=== PATIENT | male | born 1955 | race African-American/Black ===

== ENCOUNTER 2021-12-02 19:28 | Emergency (ER) | payer MEDICARE, OTHER ==
[~2021-12-02] VITALS: Ht 185.4 cm; Wt 108.9 kg
[~2021-12-02 19:28] MED LIST: Cialis5 MG; HYDCHL25; LOSA50
[2021-12-02] MEDS ORDERED: LIPITOR80 MG PO (19:40)
[2021-12-02] MEDS ORDERED: ELIQUIS5 M3 PO (19:40)
[2021-12-02] MEDS ORDERED: LOSA50 PO (19:42)
[2021-12-02] MEDS ORDERED: METO25 PO (19:42)
[2021-12-02] MEDS ORDERED: NITROGLYCERIN0.4 M3 SL (19:42)
[2021-12-02] MEDS ORDERED: AMLODIPINE BESY10 MG PO (19:43)
[2021-12-02] MEDS ORDERED: CVS SPECTRAVIT1 EA12 PO (19:43)
[2021-12-02 20:41] LABS: Alanine Aminotransfer (ALT/SGP 29 U/L (12-78); Alk Phos 97 U/L (50-136); Anion Gap 6 mmol/L (6-16); Aspartate Aminotrans (AST/SGOT 26 U/L (12-37); Bilirubin, Total 1.3 mg/dL (0.1-1.0); Blood Urea Nitrogen 11 mg/dL (8-24); Bun/Creatinine Ratio 10.6 (12.0-20.0); CO2, Blood 27 mmol/L (21-32); Calcium, Blood 9.2 mg/dL (8.5-10.1); Chloride, Blood 108 mmol/L (98-108); Creatinine, Blood 1.04 mg/dL (0.60-1.20); Globulin, Blood 4.2 g/dL (2.2-4.0); Glomerular Filtration Rate >60 (60-); Glucose, Blood 109 mg/dL (70-99); Potassium, Blood 3.6 mmol/L (3.5-5.5); Sodium, Blood 141 mmol/L (136-145); Total Protein, Blood 8.2 g/dL (6.4-8.2)
[2021-12-02 20:47] LABS: BASOPHILS ABSOLUTE AUTO 0.05 K/mm3 (0.00-0.23); BASOPHILS PERCENT AUTO 1 % (0-2); EOSINOPHILS ABSOLUTE AUTO 0.54 K/mm3 (0.00-0.68); EOSINOPHILS PERCENT AUTO 10 % (0-6); Hemoglobin 16.2 g/dL (13.5-17.5); IMMATURE GRAN ABSOLUTE AUTO 0.03 K/mm3 (0.00-0.10); IMMATURE GRAN PERCENT AUTO 1 % (0-1); LYMPHOCYTES ABSOLUTE AUTO 2.13 K/mm3 (0.84-5.20); LYMPHOCYTES PERCENT AUTO 39 % (21-46); MONOCYTES ABSOLUTE AUTO 0.39 K/mm3 (0.16-1.47); MONOCYTES PERCENT AUTO 7 % (4-13); Mean Corpuscular HGB 30.2 pg (26.0-34.0); Mean Corpuscular HGB Conc 34.5 g/dL (31.5-36.5); Mean Corpuscular Volume 88 fL (80-100); NEUTROPHILS ABSOLUTE AUTO 2.36 K/mm3 (1.96-9.15); NEUTROPHILS PERCENT AUTO 43 % (41-73); RDW Coefficient Variation 12.3 % (11.7-14.2); RDW Standard Deviation 39.8 fL (35.1-46.3); Red Blood Cell Count 5.37 M/mm3 (4.30-5.90)
[2021-12-02 20:50] LABS: Mean Platelet Volume 10.7 fL (9.1-12.4); Platelet Count 204 K/mm3 (150-400)
[2022-02-05] MEDS ORDERED: ROWEEPRA PO (16:26)
[2022-02-05] MEDS ORDERED: LEVETIRACETAM PO (16:34)
[2022-02-05] MEDS ORDERED: ROWEEPRA750 MG PO (16:38)
== END 2021-12-02 22:14 | disposition home or self-care (01) ==
LOC: ER 19:28
PROVIDERS: Emergency Medicine
DX: S09.90XA Unspecified injury of head, initial encounter (principal); I48.91 Unspecified atrial fibrillation; I10 Essential (primary) hypertension; Z79.899 Other long term (current) drug therapy; W18.30XA Fall on same level, unspecified, initial encounter
CPT/HCPCS: 70450; 80053; 85025; 93005; 93010; 99284-25